=== PATIENT | male | born 1955 ===

== ENCOUNTER 2016-12-10 10:01 | Emergency (ER) | payer OTHER ==
[2016-12-10 10:30] VITALS: TEMP 98.7
--- NOTE | 2016-12-10 10:45 | ED PDOC ---
Arrival/HPI - General Historian: Patient - History of Present Illness Time/Duration: Other (10 days) Symptom Onset: Sudden Symptom Course: Unchanged Activities at Onset: Rest, Light Context: Home - General Chief Complaint: Lower Extremity Problem/Injury Time Seen by Provider: 12/10/16 10:29 - History of Present Illness Narrative History of Present Illness (Text): 12/10/16 10:41 A 61 year old male whose past medical history includes diabetes and varicose vein, presents to the emergency department with 10 day duration right lower leg pain. The patient states that he was seen by his PMD 5 days ago where he got a US done, but has not received the report. The patient states that he has pain in his anterior bernal when he went to [place] 3 days ago and was diagnosed with sciatica and given medication. The patient comes in today with the same symptoms and requests an X-Ray. The patient denies fevers, chills, injury/trauma , nausea vomiting diarrhea, headache, dizziness, leg swelling, calf tenderness, edema, erythema, abdominal pain, chest pain, abdominal pain or ay other complaint. (Roseline Fleming) Past Medical History - Provider Review Nursing Documentation Reviewed: Yes - Cardiac Hx Cardiac Disorders: Yes Hx Hypotension: Yes - Pulmonary Hx Respiratory Disorders: No - Neurological Hx Neurological Disorder: No - HEENT Hx HEENT Disorder: No - Renal Hx Renal Disorder: No - Endocrine/Metabolic Hx Endocrine Disorders: Yes Hx Diabetes Mellitus Type 2: Yes - Hematological/Oncological Hx Blood Disorders: No - Integumentary Hx Dermatological Disorder: No - Musculoskeletal/Rheumatological Hx Musculoskeletal Disorders: No - Gastrointestinal Hx Gastrointestinal Disorders: No - Genitourinary/Gynecological Hx Genitourinary Disorders: No - Psychiatric Hx Psychophysiologic Disorder: No Hx Substance Use: No - Surgical History Hx Orthopedic Surgery: Yes Family/Social History - Physician Review Nursing Documentation Reviewed: Yes Family/Social History: No Known Family HX Smoking Status: Never Smoked Hx Alcohol Use: No Hx Substance Use: No Allergies/Home Meds Allergies/Adverse Reactions: Allergies No Known Allergies Allergy (Verified 12/10/16 10:30) Home Medications: Home Meds Medication Instructions Recorded Confirmed Acetaminophen with Codeine 1 tab PO Q4 PRN 12/10/16 12/10/16 [Tylenol with Codeine #3 Tablet] Atorvastatin [Lipitor] 10 mg PO DAILY 12/10/16 12/10/16 Diazepam [Valium] 5 mg PO Q8 PRN 12/10/16 12/10/16 Glimepiride [amaRYL] 4 mg PO BID 12/10/16 12/10/16 Ibuprofen [Motrin Tab] 600 mg PO Q6 PRN 12/10/16 12/10/16 Linagliptin [Tradjenta] 5 mg PO DAILY 12/10/16 12/10/16 Lisinopril [Zestril] 5 mg PO DAILY 12/10/16 12/10/16 Losartan [Cozaar] 100 mg PO DAILY 12/10/16 12/10/16 MetFORMIN [glucoPHAGE] 1,000 mg PO BID 12/10/16 12/10/16 Review of Systems - Physician Review All systems were reviewed & negative as marked: Yes - Review of Systems Constitutional: absent: Fevers, Night Sweats Respiratory: absent: SOB, Cough Cardiovascular: absent: Chest Pain Gastrointestinal: absent: Abdominal Pain, Diarrhea, Nausea, Vomiting Musculoskeletal: Other (right lower leg pain) Neurological: absent: Headache, Dizziness Physical Exam Vital Signs Reviewed: Yes Temperature: Afebrile Blood Pressure: Normal Pulse: Regular Respiratory Rate: Normal Appearance: Positive for: Well-Appearing Pain Distress: None Mental Status: Positive for: Alert and Oriented X 3 - Systems Exam Head: Present: Atraumatic, Normocephalic Pupils: Present: PERRL Extroacular Muscles: Present: EOMI Conjunctiva: Present: Normal Mouth: Present: Moist Mucous Membranes Neck: Present: Normal Range of Motion Respiratory/Chest: Present: Clear to Auscultation, Good Air Exchange. No: Respiratory Distress, Accessory Muscle Use Cardiovascular: Present: Regular Rate and Rhythm, Normal S1, S2. No: Murmurs Abdomen: Present: Normal Bowel Sounds. No: Tenderness, Distention, Peritoneal Signs Back: Present: Normal Inspection Upper Extremity: Present: Normal Inspection. No: Cyanosis, Edema Lower Extremity: Present: Tenderness (right anterior bernal tenderness on palpation), Neurovascularly Intact, Capillary Refill < 2 s, Other (moderate varicose veins on right lower leg with mild venous insufficiency. Pedis Pulse + 3 b/l). No: Edema, CALF TENDERNESS, Swelling, Erythema, Temperature Abnormalties Neurological: Present: GCS=15, CN II-XII Intact, Speech Normal, Motor Func Grossly Intact, Normal Sensory Function, Normal Cerebellar Funct, Gait Normal Skin: Present: Warm, Dry, Normal Color. No: Rashes, Abscess Psychiatric: Present: Alert, Oriented x 3, Normal Insight, Normal Concentration Vital Signs Temp Pulse Resp BP Pulse Ox 12/10/16 11:50 67 18 138/79 99 12/10/16 10:29 98.7 F 69 16 142/86 99 Medical Decision Making Re-evaluation Time: 12:29 Reassessment Condition: Re-examined, Improved ED Course and Treatment: 12/10/16 10:56 I was available for consultation during PA evaluation. The chart was reviewed by me, and I agree with disposition. The documented history was done by the physician day care provider. The documented physical exam was done by the physician day care provider. The documented procedures were done by the physician day care provider. (Sharif Orozco) 12/10/16 11:12 Impression: A 61 year old male with 10 day duration right anterior bernal pain. Differential Diagnosis included but are not limited to: varicose veins vs. DVT vs. Bone lesions Plan: -- Right Ankle/ Tibia Fibula X- Ray -- US Lower extremity -- Toradol -- Reassess and disposition Progress Notes: (Roseline Fleming) - RAD Interpretation Narrative RAD Interpretations (Text): 12/10/16 12:29 Accession No. : [id number] Patient Name / ID : JUNG JOINER / [id number] Exam Date : 12/10/2016 11:16:03 ( Approved ) Study Comment : Sex / Age : M / 61Y Creator : Ty Lopes MD Dictator : Ty Lopes MD Early Breastfeeding Care Specialist : Buttermaker : Ty Lopes MD Approver2 : Report Date : 12/10/2016 11:51:21 My Comment : PROCEDURE: Right lower extremity venous US HISTORY: Leg pain and swelling. Evaluate for DVT. PHYSICIAN(S): Ty Tineo M.D. TECHNIQUE: Duplex sonography and color-flow Doppler with graded compression were used to evaluate the deep venous system of the right lower extremity. FINDINGS: The visualized deep venous system of the right lower extremity is sonographically normal and compressible. Normal waveforms and augmentation are seen. There is no sonographic evidence for deep venous thrombosis in the visualized segments of the right lower extremity. IMPRESSION: 1. No sonographic evidence for deep venous thrombosis in the visualized segments of the right lower extremity. 12/10/16 12:30 Tib fib x-rays: Mild djd. No Fx Ankle x-rays: Mild djd. no fx (Roseline Fleming) Radiology Orders: 12/10/16 10:42 ANKLE RIGHT 3 VIEWS ROUTINE [RAD] Stat TIBIA FIBULA RIGHT [RAD] Stat 12/10/16 10:43 DUPLEX LOWER EXTRM VEIN RIGHT [US] Stat - Medication Orders Current Medication Orders: Discontinued Medications Ketorolac Tromethamine (Toradol) 30 mg IM STAT STA Stop: 12/10/16 10:43 Last Admin: 12/10/16 10:49 Dose: 30 mg - Procedure PROCEDURE NOTE (Text): 12/10/16 12:31 Kennedy splint placed on lower extremity by me. n/v intact. (Roseline Fleming) - Scribe Statement The provider has reviewed the documentation as recorded by the Scribe - Scribe Statement Ekaterina Salazar Provider Scribe Attestation: All medical record entries made by the Scribe were at my direction and personally dictated by me. I have reviewed the chart and agree that the record accurately reflects my personal performance of the history, physical exam, medical decision making, and the department course for this patient. I have also personally directed, reviewed, and agree with the discharge instructions and disposition. (Roseline Fleming) Disposition/Present on Arrival - Present on Arrival Any Indicators Present on Arrival: No History of DVT/PE: No History of Uncontrolled Diabetes: No Urinary Catheter: No History of Decub. Ulcer: No History Surgical Site Infection Following: None - Disposition Have Diagnosis and Disposition been Completed?: Yes Disposition Time: 12:32 Patient Plan: Discharge - Disposition Diagnosis: Varicose veins of both lower extremities, Pain in right bernal, Venous insufficiency (chronic) (peripheral) Disposition: HOME/ ROUTINE Patient Problems: Current Active Problems Problem Status Onset Pain in right bernal Acute Varicose veins of both lower extremities Acute Venous insufficiency (chronic) (peripheral) Acute Condition: GOOD Discharge Instructions (ExitCare): Varicose Veins (ED), Venous Insufficiency ( GEN) Additional Instructions: Call private doctor for follow up visit in 1-2 days. You may need to see Vascular Doctor for further evaluation, so ask your doctor for referral. Take medication as instructed. Return to emergency if symptoms worsen. Remove priyanka bandage at bedtime. Prescriptions: traMADol/Acetaminophen [Ultracet 325 MG-37.5 MG] 1 tab PO TID #10 tab Referrals: PCP,NO [Primary Care Provider] - Follow up with primary Stephanie Zhao DPM [Staff Provider] - Follow up with primary Forms: [employer] ([place])
[2016-12-10 11:50] VITALS: RESP 18
--- NOTE | 2016-12-10 11:52 | US ---
PROCEDURE: Right lower extremity venous US HISTORY: Leg pain and swelling. Evaluate for DVT. PHYSICIAN(S): Ty Tineo M.D. TECHNIQUE: Duplex sonography and color-flow Doppler with graded compression were used to evaluate the deep venous system of the right lower extremity. FINDINGS: The visualized deep venous system of the right lower extremity is sonographically normal and compressible. Normal waveforms and augmentation are seen. There is no sonographic evidence for deep venous thrombosis in the visualized segments of the right lower extremity. IMPRESSION: 1. No sonographic evidence for deep venous thrombosis in the visualized segments of the right lower extremity.
[2016-12-10] MEDS ORDERED: TraMADol/Apap 37.5/325 mg Tab PO STA (12:35)
[2016-12-10 12:44] VITALS: BP 134/86; PULSE 60; O2SAT 98
--- NOTE | 2016-12-10 13:28 | RAD ---
PROCEDURE: Radiographs of the right tibia and fibula. HISTORY: pain COMPARISON: None available. TECHNIQUE: Frontal and lateral views obtained. FINDINGS: BONES: No fracture or destructive lesion. JOINT SPACES: Unremarkable. OTHER FINDINGS: None. IMPRESSION: Unremarkable radiographs of the right tibia and fibula.
--- NOTE | 2016-12-10 13:32 | RAD ---
PROCEDURE: Right Ankle Radiographs. HISTORY: pain COMPARISON: None FINDINGS: BONES: There is some osteophyte formation between the tibia and fibula. This is of doubtful significance. JOINTS: Normal. No osteoarthritis. Ankle mortise maintained. Talar dome intact SOFT TISSUES: Normal. OTHER FINDINGS: None. IMPRESSION: No acute findings
== END 2016-12-10 12:44 | disposition home or self-care (01) ==
LOC: MERGE 10:01 → ED 10:01
DX: I83.93 Asymptomatic varicose veins of bilateral lower extremities (principal); M25.571 Pain in right ankle and joints of right foot; I87.2 Venous insufficiency (chronic) (peripheral)
CPT/HCPCS: 73590; 73610; 93971; 96372; 99284; J1885